=== PATIENT | female | born 1955 | race Caucasian/White ===

== ENCOUNTER 2018-04-18 06:01 | Inpatient (IN) ==
[2018-04-18] MEDS ORDERED: Bupivacaine/Dextrose 0.75% Inj 2 ML Ampul ONE (06:13)
[2018-04-18] MEDS ORDERED: Famotidine PF Inj 20 MG/2 ML Vial ONE (06:18)
[2018-04-18] MEDS ORDERED: Sodium Chlor 0.9% Inj 80 ML, Bupivacaine Liposo PF 1.3% Inj 20 ML P-ARTICULR SCH ×2 (06:30)
[2018-04-18] MEDS ORDERED: Metoprolol Tartrate 25 MG Tablet PO SCH (06:30)
[2018-04-18] MEDS ORDERED: Chlorhexidine Gluconate 2% 1 Pack (2 Cloths) TOPICAL SCH (06:30)
[2018-04-18] MEDS ORDERED: Chlorhexidine 4% Topical 120 APPLIC/120 ML Bottle TOPICAL SCH (06:30)
[2018-04-18] MEDS ORDERED: Dexmedetomidine Inj 200 MCG/2 ML Vial ONE (06:31)
[2018-04-18] MEDS ORDERED: EPINEPHrine PF/SF Inj 1 MG/ML Ampul I-OCULAR ONE (06:32)
[2018-04-18] MEDS ORDERED: Sodium Chlor 0.9% Inj 50 ML ONE (06:37)
[2018-04-18] MEDS ORDERED: SODIUM CHLOR 0.9% IV.SIG SCH ×2 (07:00→09:19)
[2018-04-18] MEDS ORDERED: ceFAZolin Inj 3,000 MG in Sodium Chlor 0.9% Inj 100 ML IV.SIG SCH (07:00)
[2018-04-18] MEDS ORDERED: Sodium Chlor 0.9% Inj 500 ML IV.SIG SCH (07:00)
[2018-04-18] MEDS ORDERED: TRANEXAMIC ACID IV.SIG SCH ×2 (07:00→09:19)
[2018-04-18] MEDS ORDERED: Propofol Inj 500 MG/50 ML Vial ONE ×2 (07:04)
[2018-04-18] MEDS ORDERED: Ketamine Inj 50 MG/5 ML Syringe IV.PUSH ONE (08:06)
[2018-04-18] MEDS ORDERED: HYDROmorphone PF Inj 2 MG/ML Vial ONE (08:06)
[2018-04-18] MEDS ORDERED: Acetaminophen 325 MG Tablet PO PRN (10:50)
[2018-04-18] MEDS ORDERED: Post-op Orders (for Pharmacy) OTHER STA (10:50)
[2018-04-18] MEDS ORDERED: Tranexamic Acid Inj 0 MG in Sodium Chlor 0.9% Inj 100 ML IV.SIG ONE (10:50)
[2018-04-18] MEDS ORDERED: Bisacodyl 10 MG Supp RECTAL PRN (10:50)
[2018-04-18] MEDS ORDERED: Morphine Inj 4 MG/ML Vial IV.PUSH PRN (10:50)
[2018-04-18] MEDS ORDERED: Zolpidem Tartrate 5 MG Tablet PO PRN (10:50)
[2018-04-18] MEDS ORDERED: Aluminum/Magnesium/Simethacone Susp 30 ML UDC PO PRN (10:50)
--- NOTE | 2018-04-18 11:22 | P.OP ---
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 Anesthesia: GETA, regional (Adductor canal block), local (With Exparel) Surgeon: Pipe Mcallister MD Caddy/Caddie Supervisor: RAI Henry Estimated blood loss (mL): 50 Pathology: other (Synovial biopsy and fluid for culture and sensitivity.) Operation and Findings: Indications and Findings: This 63-year-old woman had a total knee arthroplasty carried out in [place] in September,. She did relatively well but began having pain in the knee in March. She was seen by the undersigned disruption of the patellar implant on x-ray. She indicated that she had significant pain on ambulation and any type of weightbearing. She is only able to walk short distances because of the pain. Physical findings showed grade 1 medial and lateral laxity with irregularity and tenderness about the patella. X-rays showed a Biomet Vanguard uncemented total knee in place with the patellar implant being fractured from the 3 pegs and out of position. Operative findings: The femoral component and tibial component of the total knee were in good position and alignment and were stable. The patella implant was fractured similar to the x-rays noted. The articular plastic appeared satisfactory however the posterior aspect of the patella bone and scar tissue along with scar tissue over the patellar implant. 3 metal pegs were still in place in the actual patella. Varus and valgus stress showed that the femoral component opens in relation to the tibia on both sides by at least 2 mm. Additionally, there was metallic debris evidenced by black synovium throughout the suprapatellar pouch infrapatellar area medial and lateral gutters. There is some very small shallow scratches longitudinally along the trochlea that did not appear to be of major consequence. The prosthesis used was a Biomet Vanguard prosthesis. The femur was not replaced. The tibial baseplate was not replaced. The spacer that was a 10 mm PS tibial bearing was removed and replaced with a 12 mm 71/75 mm PS tibial bearing. The patella was a size symmetrical, 37 mm x 10 mm, polyethylene 3 peg implant. The cement was Symplex. Procedure: The patient was brought to the clean-air operating suite after administration of a regional anesthetic by adductor canal block. A general anesthetic was administered. The position was supine with a small bolster under the hip on the operative side. A pneumatic tourniquet was applied to the upper thigh. The lower extremity was prepped with alcohol, Hibiclens and ChloraPrep and draped in the usual manner with the knee draped free. An appropriate timeout procedure was carried out. An incision was made from about 3 fingerbreadths above the superior medial pole of patella down the tibial tubercle on the medial side following the prior incisional scar. The incision was deepened through the subcutaneous tissue to the retinacular structures which were exposed medially and laterally. A medial retinacular incision was made from the superior medial pole of patella down the tibial tubercle and up into the quadriceps tendon, splitting it longitudinally in the medial one third. A culture and sensitivity of the clear, yellow fluid was sent to the laboratory. The patella was reflected. Dissection was carried out medially and laterally to expose the proximal tibia as well as around the patella. Peripatellar fibrosis was excised allowing for exposure of the fractured patella prosthesis. The patellar button was then removed. Debris from this area was cleaned with curette and other instruments. The 3 pegs were removed from the patella. These were not well fixed at this time. The synovium was debrided with a combination of scalpel, electrocautery and rongeur. Virtually all of the blackened tissue was removed. Exposure of the proximal tibia was carried out. The stability was carefully checked and it was thought that removal of the current insert and placement of a better sized insert would be appropriate. The tibial insert was removed. The size was verified. The tibial insert trial was positioned in place. The alignment was checked. Attention was directed to the patella. A posterior patellar cut was then made to smooth the edges. The patella drill guide was positioned in place for the appropriate sized patella. Patellar drilling was then carried out. The most medial drill hole was unchanged; however, the lateral 2 drill holes were slightly more proximal than the previous drill holes. The trial patella was positioned in place. The knee was taken through a range of motion which was easily 0 extension to 120. The patella trial was removed. The trial tibial spacer was removed. The tibial spacer was inserted. The locking device was inserted. Symplex cement was then injected into the cleaned and dried patellar bone and posterior aspect of the patella. The patella component was seated with the patellar clamp and tightened appropriately. The cement was allowed to set. Exparel was injected throughout the knee as a local anesthetic. After the cement had set and the patella clamp was removed, the knee was taken through a range of motion which was comparable to the previous range of motion with excellent stability in flexion and extension and appropriate patellofemoral tracking. The remainder of the Exparel was injected throughout the knee as a local anesthetic. Drains were brought out the superior lateral aspect of the suprapatellar pouch. Wound closure commenced using 0 Vicryl interrupted [id number] sutures for the capsular and fascial structures, 2-0 Vicryl interrupted simple sutures with buried knots for the subcutaneous tissues and 4-0 Monocryl, continuous subcuticular closure for the skin. The wound was dressed with Dermabond Prineo followed by a dry sterile dressing. Sterile soft roll with a cooling pad and Jeremy bandage from the base of the toes to mid thigh were applied. Patient was transferred from the operating room to the recovery room in satisfactory condition having tolerated procedure well. Counts were correct. Specimens: Culture and sensitivity of fluid and pathologic examination of synovium. Estimated blood loss: 50 mL
[2018-04-18] MEDS ORDERED: fentaNYL Citrate Inj 100 MCG/2 ML Ampul ONE (11:28)
--- NOTE | 2018-04-18 11:34 | P.DCO ---
- Physical Therapy Physical Therapy: Gait training Knee: Total knee, Protocol: Left, Gait training, Full weight bearing Left Lower Extremity Weight Bearing: Weight bearing as tolerated Left Lower Extremity Range of Motion: Active ROM (Active, active assisted, passive range of motion. Range of motion goal is 0 extension to 120 of flexion which was achieved in the operating room.) - Nursing Nursing: Dressing changes Dressing changes: Daily dressing change, Coverderm/Primapore Additional instructions: Do not remove Dermabond Prineo. - Certification Need for Home Health services: I have seen patient Anna Alberto on 04/18/18. My clinical findings support the need for the requested home health care services because: Need for Home Health Services: Limited mobility due to disease progression, Deconditioned with increased weakness, High risk of falls Homebound Certification: I certify that my clinical findings support that this patient is homebound because: Homebound Certification: Post-op weakness, Unsteady gait/balance, Unsafe to leave home unassisted
[2018-04-18] MEDS ORDERED: Neostigmine Inj 5 MG/5 ML Syringe IV.PUSH ONE (12:00)
[2018-04-18] MEDS ORDERED: Sodium Chlor 0.9% Inj 500 ML IV.SIG ONE (12:00)
[2018-04-18] MEDS ORDERED: Lidocaine PF 1% Inj 5 ML Syringe INFILTRATN ONE (12:00)
[2018-04-18] MEDS ORDERED: Glycopyrrolate Inj 1 MG/5 ML Syringe IV.PUSH ONE (12:00)
--- NOTE | 2018-04-18 12:04 | XR ---
EXAM DATE: 04/18/2018 12:01 PM EDT AGE/SEX: 63 years / Female INDICATIONS: Post-op left total knee replacement. CLINICAL DATA: This is the patient's initial encounter. Patient reports that signs and symptoms have been present for 1 day and indicates a pain score of Nonresponsive. MEDICAL/SURGICAL HISTORY: Non-responsive. Non-responsive. COMPARISON: No prior exams available for comparison. FINDINGS: AP and lateral views of the left knee were obtained and demonstrate the patient status post arthropla sty. The tibial and femoral components are intact and in normal alignment. There are postoperative ch anges involving the patella. There is anterior soft tissue swelling with surgical drains in place. Th ere is overlying artifact. CONCLUSION: Expected postoperative changes status post arthroplasty. Electronically signed by: Suman Mandel MD 04/18/2018 12:03 PM EDT
[2018-04-18] MEDS ORDERED: Dextrose 50% in Water 50 ML Vial IV.PUSH PRN (12:17)
[2018-04-18] MEDS: Ketorolac Inj 30 MG/ML (IVP) Vial IV.PUSH SCH ×3 (12:34→23:30)
--- NOTE | 2018-04-18 13:10 | P.CON ---
History of Present Illness Primary Care Provider: Rafa Solares MD History of Present Illness: This is a 63-year-old female with a history of left knee pain secondary to patellar implant failure. Underwent revision patellar implant, revision tibial spacer and synovectomy, left total knee, Biomet Vanguard by Dr. Mcallister who requested consultation to evaluate and manage multiple medical conditions and provide postop care. Patient was seen in PACU. Anesthesia records reviewed she was hemodynamically stable. Patient states her diabetes is well-controlled A1c of 5.7 on Amaryl and metformin, hypertension is also managed on losartan and hydrochlorothiazide as well as hyperlipidemia on simvastatin. She is requesting that her eyedrops for cataract will be continued. Family history no diabetes. All other systems reviewed negative Review of Systems All other systems reviewed negative except as stated in HPI PMFSH - History History Provided By: Patient - Medical History Medical History: Medical History (Last Reviewed 04/18/18 @ 15:10 by Cecilia Moreno RN) Cataract Diabetes GERD (gastroesophageal reflux disease) High cholesterol History of fracture of humerus History of wisdom tooth extraction Hypertension Joint pain Osteoporosis Wears glasses - Surgical History Surgical History: Surgical History (Last Reviewed 04/18/18 @ 15:10 by Cecilia Moreno RN) History of History of arthroplasty of left knee History of cataract extraction with lens replacement History of tonsillectomy and adenoidectomy History of ureter repair - Tobacco History Second Hand Smoke Exposure: No Smoking Status: Never smoker - Alcohol History How Often Do You Have a Drink Containing Alcohol: 2 to 3 times a week - Substance Use History Substance History: No History of Abuse - Travel History Recent Travel in the [place] Within the Last 8 Weeks: No Recent Travel Out of the Country Within the Last 8 Weeks: No Medications and Allergies Active Medications: Active Medications Acetaminophen (Tylenol) 650 mg PO Q6H PRN PRN Reason: Pain Less Than 3 On Scale Hydrocodone Bitart/Acetaminophen ([place] 7.5/325) 1 tab PO Q4H PRN PRN Reason: PAIN SCALE 4 TO 6 MODERATE Hydrocodone Bitart/Acetaminophen ([place] 7.5/325) 2 tab PO Q6H PRN PRN Reason: PAIN SCALE 7 TO 10 SEVERE Al Hydrox/Mg Hydrox/Simethicone (Mag-Al Plus Susp Liq) 30 ml PO Q6H PRN PRN Reason: INDIGESTION Al Hydroxide/Mg Hydroxide (Milk Of Lydia Agosto) 30 ml PO BID PRN PRN Reason: Mild Constipation Aspirin (Aspirin Chew) 81 mg PO BID [facility] Bisacodyl (Dulcolax Supp) 10 mg RECTAL DAILY PRN PRN Reason: SEVERE CONSITIPATION Chlorhexidine Gluconate (Chlorhexidine 2% Cloth) 3 pack TOPICAL [employer] OFFICER [facility] Stop: 04/21/18 06:17 Last Admin: 04/18/18 06:00 Dose: 3 pack Chlorhexidine Gluconate (Hibiclens 4% Topical) 1 applicatio TOPICAL ONCE [facility] Stop: 04/22/18 06:29 Last Admin: 04/18/18 06:41 Dose: 1 applicatio Dextrose (D50w Vial) 50 ml IV.PUSH UNSCH PRN PRN Reason: PER HYPOGLYCEMIA PROTOCOL Diphenhydramine HCl (Benadryl) 25 mg PO Q6H PRN PRN Reason: ITCHING Famotidine (Pepcid) 20 mg PO BID [facility] Glimepiride (Amaryl) 1 mg PO DAILYAC [facility] Glucagon (Glucagon Inj) 1 mg OTHER PRN PRN PRN Reason: for Hypoglycemia Protocol Hydrochlorothiazide (Microzide) 12.5 mg PO DAILY [facility] Tranexamic Acid 1,382 mg/ (Sodium Chloride) 113.82 mls @ 200 mls/hr IV.SIG ONCE [facility] Stop: 04/18/18 15:19 Cefazolin Sodium 3,000 mg/ (Sodium Chloride) 130 mls @ 200 mls/hr IV.SIG [employer] OFF[employer]ER [facility] Stop: 04/22/18 06:59 Cefazolin Sodium 1,000 mg/ (Sodium Chloride) 100 mls @ 200 mls/hr IV.SIG Q6H [facility] Stop: 04/19/18 03:29 Lactated Ringer's (Lr 1000 Ml Inj) 1,000 mls @ 80 mls/hr IV.CONT .[id number] [facility] Last Admin: 04/18/18 11:30 Dose: 80 mls/hr Insulin Aspart (Novolog Insulin Correctional Sugar Inj) 0 unit SQ ACHS [facility]; Protocol Ketorolac Tromethamine (Acular 0.5% Opth Drops) 1 drop RIGHT EYE QID [facility] Ketorolac Tromethamine (Toradol Inj) 15 mg IV.PUSH Q6H [facility] Stop: 04/20/18 06:01 Last Admin: 04/18/18 12:34 Dose: 15 mg Lactulose (Lactulose Liq) 30 ml PO DAILY PRN PRN Reason: SEVERE CONSITIPATION Losartan Potassium (Cozaar) 50 mg PO DAILY [facility] Metformin HCl (Glucophage) 1,000 mg PO BID [facility] Metoprolol Tartrate (Lopressor) 25 mg PO [employer] [facility] Stop: 04/21/18 06:17 Last Admin: 04/18/18 06:43 Dose: Not Given Miscellaneous Information [place] [facility] 1 each OTHER UNSCH PRN PRN Reason: SEE LABEL COMMENTS Stop: 04/19/18 12:27 Morphine Sulfate (Morphine Inj) 2 mg IV.PUSH Q3H PRN PRN Reason: BREAKTHROUGH PAIN Ondansetron HCl (Zofran Odt) 4 mg PO Q6H PRN PRN Reason: NAUSEA OR VOMITING Pantoprazole Sodium (Protonix) 40 mg PO BID [facility] Pt Own Med: Prednisolone Sodium Phosphate 1 each RIGHT EYE TID [facility] Povidone Iodine (Betadine 5% Antisepsis Kit) 1 applicatio EACH NARE [employer] OFF[employer]ER [facility] Stop: 04/21/18 06:17 Last Admin: 04/18/18 06:42 Dose: Not Given Pravastatin Sodium (Pravachol) 80 mg PO DAILY@1800 [facility] Senna/Docusate Sodium (Becca-Colace) 1 tab PO BID [facility] Sennosides (Senokot) 17.2 mg PO BID PRN PRN Reason: Moderate Constipation Sodium Chloride (Ns Flush) 2 ml IV.FLUSH BID [facility] Sodium Chloride (Ns Flush) 2 ml IV.FLUSH PRN PRN PRN Reason: FLUSH AFTER USING IV ACCESS Trazodone HCl (Desyrel) 150 mg PO HS [facility] Zolpidem Tartrate (Ambien) 5 mg PO HS PRN PRN Reason: INSOMNIA Allergies Allergy/AdvReac Type Severity Reaction Status Date / Time Iodinated Contrast- Oral and Allergy Headache Verified 04/18/18 06:34 IV Dye [Contrast] lisinopril Allergy Cough Verified 04/18/18 06:34 solifenacin [From Vesicare] Allergy Dizziness Verified 04/18/18 06:34 Home Medications Medication Instructions Recorded Confirmed Type Ca-D3-mag [id number]-bor 1 tab PO BID 04/08/18 04/18/18 History [Calcium 600-D3 Plus] aspirin [Aspirin Low Dose] 81 mg PO DAILY 04/08/18 04/18/18 History glimepiride 1 mg PO HS 04/08/18 04/18/18 History ketorolac 1 drp RIGHT EYE QID 04/08/18 04/18/18 History losartan-hydrochlorothiazide 1 tab PO DAILY 04/08/18 04/18/18 History metformin 1,000 mg PO BID 04/08/18 04/18/18 History pantoprazole 40 mg PO BID 04/08/18 04/18/18 History prednisolone sodium phosphate 1 drp RIGHT EYE TID 04/08/18 04/18/18 History ranitidine HCl 150 mg PO BID 04/08/18 04/18/18 History simvastatin 40 mg PO QPM 04/08/18 04/18/18 History trazodone 150 mg PO HS 04/08/18 04/18/18 History Physical Exam Vital signs: Vital Signs 04/18/18 06:49 04/18/18 11:22 04/18/18 11:30 Temperature 97.7 F 97.4 F L 97.4 F L Pulse Rate 80 114 H 85 Respiratory Rate 16 12 12 Blood Pressure 119/67 118/64 106/55 L Pulse Oximetry 100 100 100 04/18/18 11:45 04/18/18 12:00 04/18/18 12:15 Temperature Pulse Rate 69 73 80 Respiratory Rate 12 12 12 Blood Pressure 126/61 148/73 H 144/71 H Pulse Oximetry 99 97 97 Intake & Output 04/17/18 04/18/18 04/18/18 18:59 06:59 18:59 Intake Total 2513.82 / 2513.82 Output Total 50 / 50 Balance 2463.82 / 2463.82 Weight 138.2 kg Intake: IV 1113.82 / 1113.82 LR 1000 mL Inj 1,000 ML @ 30 1000 / 1000 mls/hr IV.SIG .Q24H MICHAEL Rx#: [id number] Cyklokapron Inj 1,382 MG In NS 113.82 / 113.82 Inj 100 ML @ 200 mls/hr IV.SIG ONCE MICHAEL Rx#:[id number] Anesthesia Amount 1400 / 1400 Output: Estimated Blood Loss 50 / 50 Other: # Voids 1 Weight On Admission 138.2 kg Narrative: GENERAL: Well-developed, obese in no distress SKIN: Warm and dry. HEAD: Atraumatic. Normocephalic. EYES: Pupils equal and round. No scleral icterus. No injection or drainage. ENT: No nasal bleeding or discharge. Mucous membranes pink and moist. NECK: Trachea midline. No JVD. CARDIOVASCULAR: Regular rate and rhythm. RESPIRATORY: No accessory muscle use. Clear to auscultation. Breath sounds equal bilaterally. GASTROINTESTINAL: Abdomen soft, non-tender, nondistended. MUSCULOSKELETAL: Left lower extremity with dry bulky dressing on a CPM, right lower extremity with SCD. No obvious deformities. NEUROLOGICAL: Awake and alert. No obvious cranial nerve deficits. Motor grossly within normal limits. Five out of 5 muscle strength in the arms and legs. Normal speech. PSYCHIATRIC: Appropriate mood and affect; insight and judgment normal. Assessment and Plan - Plan This is a 63-year-old female with a history of left knee pain secondary to patellar implant failure. Underwent revision patellar implant, revision tibial spacer and synovectomy, left total knee, Biomet Vanguard by Dr. Mcallister who requested consultation to evaluate and manage multiple medical conditions and provide postop care. Left knee replacement revision. She is doing okay continue postoperative care with wound care, physical therapy, incentive spirometry, DVT prophylaxis with aspirin and pain management with Lortab, IV Toradol and IV morphine. Counseled regarding narcotics. Diabetes. A1c of 5.7 on Amaryl and metformin will continue per Hypertension is also managed on losartan and hydrochlorothiazide. Continue to monitor Hyperlipidemia on simvastatin. Recent cataract surgery. Continue steroid and ketorolac eyedrops Discharge Planning: Per orthopedic surgery
[2018-04-18] MEDS: PREDNISOLONE RIGHT EYE SCH ×2 (14:54→17:20)
[2018-04-18] MEDS: Ketoralac 0.5% Opth Drops 5 ML Bottle RIGHT EYE SCH ×3 (14:54→21:17)
[2018-04-18] MEDS: Insulin NovoLOG Aspart Correctional Sugar Inj SQ SCH ×2 (17:24→21:18)
[2018-04-18] MEDS ORDERED: traZODone 50 MG Tablet PO SCH (21:00)
[2018-04-18] MEDS ORDERED: CA D3 MAG OX ZINC COP MANG BOR PO SCH (21:00)
[2018-04-18] MEDS: Famotidine 20 MG Tablet PO SCH (21:16)
[2018-04-18] MEDS: Senna/Docusate Sodium 8.6/50 MG Tablet PO SCH (21:16)
[2018-04-19 04:57] LABS: Hematocrit 33.7 % (35.0-46.0); Hemoglobin 11.6 gm/dL (11.6-15.3)
[2018-04-19] MEDS: Ketorolac Inj 30 MG/ML (IVP) Vial IV.PUSH SCH ×2 (05:56→11:44)
--- NOTE | 2018-04-19 06:42 | P.PNOP ---
Subjective Interval history: Postop day #1 She is doing well. She has minimal complaints. She indicates that the block effect has abated and she has a pain level of about 3. This is well controlled with analgesic. Physical therapy reports that the ambulation distance was 75 feet. The range of motion was 0 extension to 90 of flexion. Physical Exam Vital signs: Vital Signs 04/18/18 06:49 04/18/18 11:22 04/18/18 11:30 Temperature 97.7 F 97.4 F L 97.4 F L Pulse Rate 80 114 H 85 Respiratory Rate 16 12 12 Blood Pressure 119/67 118/64 106/55 L Pulse Oximetry 100 100 100 04/18/18 11:45 04/18/18 12:00 04/18/18 12:15 Temperature Pulse Rate 69 73 80 Respiratory Rate 12 12 12 Blood Pressure 126/61 148/73 H 144/71 H Pulse Oximetry 99 97 97 04/18/18 12:30 04/18/18 12:45 04/18/18 13:00 Temperature Pulse Rate 76 66 81 Respiratory Rate 14 13 20 Blood Pressure 154/74 H 143/67 H 142/66 H Pulse Oximetry 97 97 98 04/18/18 15:41 04/18/18 18:13 04/18/18 20:00 Temperature 97.3 F L 97.7 F 97.3 F L Pulse Rate 68 84 77 Respiratory Rate 18 18 18 Blood Pressure 127/65 132/79 128/56 L Pulse Oximetry 96 100 99 04/19/18 00:00 04/19/18 04:00 Temperature 98.4 F 97.6 F Pulse Rate 88 83 Respiratory Rate 18 18 Blood Pressure 115/51 L 118/56 L Pulse Oximetry 95 95 Intake & Output 04/18/18 04/18/18 04/19/18 06:59 18:59 06:59 Intake Total 2956.82 / 2956.82 1660 / 1660 Output Total 60 / 60 15 15 Balance 2896.82 / 2896.82 1645 / 1645 Weight 138.2 kg 138.2 kg 164 kg Intake: IV 1556.82 / 1556.82 1200 / 1200 LR 1000 mL Inj 1,000 ML @ 80 343 / 343 1000 / 1000 mls/hr IV.CONT .[id number] [facility] Rx# :[id number] LR 1000 mL Inj 1,000 ML @ 30 1000 / 1000 mls/hr IV.SIG .Q24H MICHAEL Rx#: [id number] Cyklokapron Inj 1,382 MG In NS 113.82 / 113.82 Inj 100 ML @ 200 mls/hr IV.SIG ONCE [facility]HAEL Rx#:[id number] Ancef Inj 1,000 MG In NS Inj 100 / 100 200 / 200 100 ML @ 200 mls/hr IV.SIG Q6H MICHAEL Rx#:[id number] Oral 460 / 460 Anesthesia Amount 1400 / 1400 Output: Estimated Blood Loss 50 / 50 Wound Drainage # 2 Left Knee Hemovac Other: # Voids 1 1 Date of Last Bowel Movement 04/18/18 04/18/18 Weight On Admission 138.2 kg Narrative: She is resting comfortably, supine in bed, in the CPM. The dressing is dry and intact. The neurovascular status is intact. Results - Labs CBC & Chem 7: 04/19/18 04:41 Laboratory Results - last 24 hr 04/18/18 04/18/18 04/18/18 06:40 12:54 17:23 Hgb Hct POC Glucose 134 H 141 H Blood Type O Positive Blood Type Recheck Required Antibody Screen Negative 04/18/18 04/19/18 21:03 04:41 Hgb 11.6 Hct 33.7 L POC Glucose 150 H Blood Type Blood Type Recheck Antibody Screen Microbiology 04/18/18 09:41 Other Fungal Smear - Final No fungal elements seen 04/18/18 09:09 Wound - Knee Gram Stain - Final - Imaging Impressions Knee X-Ray 04/18/18 10:45 CONCLUSION: Expected postoperative changes status post arthroplasty. - Procedures Revision patellar implant, revision tibial spacer and synovectomy, left total knee, Biomet Vanguard. Assessment and Plan - Ortho Post Op Day # 1 - Problem List (1) Status post revision of total replacement of left knee Code(s): Z96.652 - Presence of left artificial knee joint Status: Acute Plan: Continue postop care continue postop care and PT. - Assessment and Plan Condition: Good. Orthopedically stable. DVT prophylaxis: TEDs, aspirin, sequentials. Discharge plans: Home with home health care. An appointment was scheduled through the office. Prescriptions: [place] 7.5/325; Patient is having significant pain caused by a total knee replacement which will last more than 3 days. Trial of Tylenol has not helped. I believe that it is medically necessary to treat patients pain because it is affecting patients ability to participate in postoperative rehabilitation and perform activities of daily living in a comfortable and efficient manner.
--- NOTE | 2018-04-19 06:58 | P.DS ---
Date of admission: 04/18/18 06:01 Primary care physician: Rafa Solares MD Attending physician on discharge: Pipe Pierson Anticipated date of discharge: 04/19/18 Brief History from admission: This 63-year-old woman has had a prior total knee arthroplasty in [place]. More recently, she felt pain in her knee with difficulty walking. She was seen in my office where she was found to have disruption of her patellar implants. Physical findings showed laxity varus and valgus stress with some tenderness in the peripatellar area. X-rays showed a Biomet uncemented knee in place with the patella having fractures of all 3 pegs and displacement of the major button portion. The remainder of the prosthesis appears satisfactory. DS: Diagnosis - Discharge Diagnosis (1) Status post revision of total replacement of left knee Status: Acute Diagnosis: Principal (2) Failed total left knee replacement Status: Acute Diagnosis: Principal DS: Medications - Discharge Medications Prescriptions: hydrocodone-acetaminophen 1 tab PO Q4H PRN 7 Days #42 tab PRN Reason: Pain (Scale Score 7-10) DS: Summary Hospital Course: The patient was admitted as noted above. The above noted operative procedure was carried out that day. Preoperatively prophylactic antibiotics were administered Ancef according to protocol. These were continued postoperatively. The patient also received tranexamic acid to help with hemostasis according to protocol. In the postanesthesia care unit a continuous passive motion device was initiated. Also initiated were mechanical methods of DVT prophylaxis in the form of stockings and sequentials. Physical therapy was initiated on the day of surgery. On postoperative day #1 physical therapy continued. The use of the continuous passive motion device continued. DVT prophylaxis with aspirin 81 mg was initiated at this time. The patient continued physical therapy throughout the hospitalization. The distance walked and range of motion improved throughout the hospitalization. The patient was discharged on postoperative day 1 with the disposition being to home with home health care. An appointment for follow-up was made prior to admission. - Time Spent with Patient Total time spent providing and/or coordinating discharge services: Greater than 30 minutes - Quality: VTE Deep Vein Thrombosis/Pulmonary Embolism Present on Admission: No Exam Vital signs: Vital Signs 04/18/18 11:22 04/18/18 11:30 04/18/18 11:45 Temperature 97.4 F L 97.4 F L Pulse Rate 114 H 85 69 Respiratory Rate 12 12 12 Blood Pressure 118/64 106/55 L 126/61 Pulse Oximetry 100 100 99 04/18/18 12:00 04/18/18 12:15 04/18/18 12:30 Temperature Pulse Rate 73 80 76 Respiratory Rate 12 12 14 Blood Pressure 148/73 H 144/71 H 154/74 H Pulse Oximetry 97 97 97 04/18/18 12:45 04/18/18 13:00 04/18/18 15:41 Temperature 97.3 F L Pulse Rate 66 81 68 Respiratory Rate 13 20 18 Blood Pressure 143/67 H 142/66 H 127/65 Pulse Oximetry 97 98 96 04/18/18 18:13 04/18/18 20:00 04/19/18 00:00 Temperature 97.7 F 97.3 F L 98.4 F Pulse Rate 84 77 88 Respiratory Rate 18 18 18 Blood Pressure 132/79 128/56 L 115/51 L Pulse Oximetry 100 99 95 04/19/18 04:00 Temperature 97.6 F Pulse Rate 83 Respiratory Rate 18 Blood Pressure 118/56 L Pulse Oximetry 95 Intake & Output 04/18/18 04/18/18 04/19/18 06:59 18:59 06:59 Intake Total 2956.82 / 2956.82 1660 / 1660 Output Total 60 / 60 15 Balance 2896.82 / 2896.82 1645 / 1645 Weight 138.2 kg 138.2 kg 164 kg Intake: IV 1556.82 / 1556.82 1200 / 1200 LR 1000 mL Inj 1,000 ML @ 80 343 / 343 1000 / 1000 mls/hr IV.CONT .[id number] MICHAEL Rx# :[id number] LR 1000 mL Inj 1,000 ML @ 30 1000 / 1000 mls/hr IV.SIG .Q24H MICHAEL Rx#: [id number] Cyklokapron Inj 1,382 MG In NS 113.82 / 113.82 Inj 100 ML @ 200 mls/hr IV.SIG ONCE MICHAEL Rx#:[id number] Ancef Inj 1,000 MG In NS Inj 100 / 100 200 / 200 100 ML @ 200 mls/hr IV.SIG Q6H MICHAEL Rx#:[id number] Oral 460 / 460 Anesthesia Amount 1400 / 1400 Output: Estimated Blood Loss 50 / 50 Wound Drainage # 2 Left Knee Hemovac Other: # Voids 1 1 Date of Last Bowel Movement 04/18/18 04/18/18 Weight On Admission 138.2 kg Narrative: She is resting comfortably, supine in bed, in the CPM. The neurovascular status is intact. The dressing is dry and intact Results Procedures completed during hospitalization: Revision patellar implant, revision tibial spacer and synovectomy, left total knee, Biomet Vanguard. Pending studies at discharge: Pending at discharg 04/18/18 10:39 Surgical [PTH] Routine Labs on day of discharge: Labs from last 24 hours 04/19/18 04/18/18 04/18/18 04:41 21:03 17:23 Hgb 11.6 Hct 33.7 L POC Glucose 150 H 141 H Blood Type Blood Type Recheck Antibody Screen 04/18/18 04/18/18 12:54 06:40 Hgb Hct POC Glucose 134 H Blood Type O Positive Blood Type Recheck Required Antibody Screen Negative - Impressions ITS Impressions Knee X-Ray 04/18/18 10:45 CONCLUSION: Expected postoperative changes status post arthroplasty. Discharge Plan - Discharge Disposition Patient Disposition: /Home Health Service - Discharge Condition Condition: Stable - Discharge Order Discharge Orders: Discharge Order (Routine); Ordered 04/19/18 Ordered By: Pipe Pierson - Discharge Details Anticipated Discharge Date: 04/19/18 - Physicians Team Primary Care Provider: Rafa Solares Attending Provider: Pipe Pierson - Rxs /Orders / Referrals /Forms Prescriptions: New aspirin 81 mg Tablet,Chewable 81 mg PO BID RF: 0 hydrocodone-acetaminophen 7.5-325 mg Tablet 1 tab PO Q4H PRN (Reason: Pain (Scale Score 7-10)) 7 Days Qty: 42 RF: 0 Continue Ca-D3-mag yi-ipmp-aak-karoline-bor [Calcium 600-D3 Plus] 600 mg calcium- 800 unit -50 mg Tablet 1 tab PO BID glimepiride 1 mg Tablet 1 mg PO HS ketorolac 0.5 % Drops 1 drp RIGHT EYE QID losartan-hydrochlorothiazide 50-12.5 mg Tablet 1 tab PO DAILY metformin 1,000 mg Tablet Extended Release 24hr 1,000 mg PO BID pantoprazole 40 mg Tablet,Delayed Release (Dr/Ec) 40 mg PO BID prednisolone sodium phosphate 1 % Drops 1 drp RIGHT EYE TID ranitidine HCl 150 mg Tablet 150 mg PO BID simvastatin 40 mg Tablet 40 mg PO QPM trazodone 150 mg Tablet 150 mg PO HS Discontinued aspirin [Aspirin Low Dose] 81 mg Tablet,Delayed Release (Dr/Ec) 81 mg PO DAILY Referrals: Pipe Pierson MD [Physician] - See Instructions Rafa Solares MD [Primary Care Provider] - See Instructions - Discharge Instructions Patient Printed Instructions: Laxative, Stool Softeners (By mouth), Wound Infection (DC), Narcotic Pain Management (DC), How To Wash Your Hands (DC), Knee Replacement (DC), Deep Vein Thrombosis Prevention (DC) Additional Instructions: F/U WITH DR. PIERSON SCHEDULED. TAKE MEDICATIONS PRESCRIBED. MONITOR FOR SIGNS OF SURGICAL SITE INFECTIONS SUCH INCREASED SWELLING, FOUL SMELLING DRAINAGE. WASH HANDS FREQUENTLY. - Post Discharge Care Plan Care Plan Goals: Discharge Care Plan Goals for Total Knee Replacement You have undergone knee replacement surgery. Your doctor replaced your painful joint with an artificial joint to relieve pain and restore movement. Here are some goals to help you heal well. Directions to Meet your Goals: 1. Activity & Exercises: * Take pain medicine as directed by your doctor. * Sit in chairs with arms. The arms make it easier for you to stand up or sit down. * Dont sit for more than 30 to 45 minutes at one time. * Nap if you are tired, but dont stay in bed all day. * Sleep with a pillow under your ankle, not your knee. Be sure to change the position of your leg during the night. * Wear the support stockings you were given in the hospital as directed by your surgeon. 2. Prevent Falls/Injury: The garcia to successful recovery is movement with walking and exercising your knee as directed by your doctor. * Arrange your household to keep the items you need handy. Keep everything else out of the way. * Remove items that may cause you to fall, such as throw rugs and electrical cords. * Use nonslip bath mats, grab bars, an elevated toilet seat, and a shower chair in your bathroom * Sit on a shower stool or chair when you shower to keep from falling. * Until your balance, flexibility, and strength improve, use a cane, crutches, a walker, handrails, or someone to help you. * Keep your hands free by using a backpack, armando pack, apron, or pockets to carry things * Walk up and down stairs with support. Try one step at a time. Use the railing if possible. * Dont drive until your doctor says its OK. * Dont drive while you are taking opioid pain medicine. 3. Precautions: * Prevent infection. Any infection will need to be treated immediately. Call your doctor right away if you think you might have an infection. * Tell your dentist that you have an artificial joint and take antibiotics as prescribed before any dental work. * Tell all your healthcare providers about your artificial joint before any medical procedure. * Maintain a healthy weight. Get help to lose any extra pounds. Added body weight puts stress on the knee. * Your medications may include blood-thinning medicine to prevent blood clots or antibiotics to prevent infection-prevent any falls or cuts 4. Incision Care: * Prevent infection by washing your hands often. If an infection occurs, it will need to be treated right away. * Call your doctor right away if you think you may have an infection. Symptoms include a fever or an incision that leaks white, green, or yellow fluid. * Don't soak your incision in water until your doctor says its OK. This means no hot tubs, bathtubs, or swimming pools. * Follow your doctor's instructions for changing the dressing. * Dont rub the incision, or apply creams or lotions to it. * If you notice any redness or drainage around the bandage site, contact your surgeon's office immediately. 5. Follow-Up: Do Not miss your follow-up appointment. Keep up with all your appointments and yearly check ups When to call your doctor: Call your doctor right away if you have: Fever of 100.4F (38C) or higher, or as directed by your doctor Shaking chills Stiffness, or inability to move the knee Increased swelling in your leg Increased redness, tenderness, or swelling in or around the knee incision Drainage from the knee incision Increased knee pain Call 911: Call 911 right away if you have: Chest pain Shortness of breath Any pain or tenderness in your calf
[2018-04-19] MEDS ORDERED: Glimepiride 1 MG Tablet PO SCH (07:00)
[2018-04-19] MEDS: Senna/Docusate Sodium 8.6/50 MG Tablet PO SCH ×2 (07:39→08:56)
[2018-04-19] MEDS: Famotidine 20 MG Tablet PO SCH ×2 (07:39→08:56)
[2018-04-19] MEDS: Insulin NovoLOG Aspart Correctional Sugar Inj SQ SCH ×2 (07:40→13:10)
[2018-04-19] MEDS: Ketoralac 0.5% Opth Drops 5 ML Bottle RIGHT EYE SCH ×2 (08:55→13:11)
[2018-04-19] MEDS: PREDNISOLONE RIGHT EYE SCH ×2 (08:55→13:11)
[2018-04-19] MEDS ORDERED: Non-Formulary Drug (Losartan-Hydrochlorothiazide [Losartan-Hydrochlorothiazide] 1 TAB) PO SCH (09:00)
== END 2018-04-19 15:21 | disposition home health service (06) ==
LOC: HSDI 06:01 → N06 13:09
PROVIDERS: ADMIT Orthopaedic Surgery; ATTEND Orthopaedic Surgery